=== PATIENT | male | born 1945 | race Caucasian/White ===

== ENCOUNTER 2016-09-15 08:40 | Emergency (ER) | payer MEDICARE ==
[2016-09-15 08:54] VITALS: BP 155/95
[2016-09-15] MEDS ORDERED: Phenylephrine 1% NASAL* 15 ML BOT ONE (09:00)
--- NOTE | 2016-09-15 09:20 | UC ---
Epistaxis Nasal HPI - HPI Summary HPI Summary: NOSE BLEED FROM THE RIGHT NOSTRIL SINCE THIS MORNING , HX OF FREQUENT NOSE BLEED, SAW ENT DR. ABDI LAST TIME ON [facility] - History of Current Complaint Chief Complaint: UCGeneralIllness Stated Complaint: NOSE BLEED Time Seen by Provider: 09/15/16 08:59 Hx Obtained From: Patient Onset/Duration: Sudden Onset, Lasting Hours - 2, Still Present Timing: Constant Severity Initially: Severe Aggravating Factor(s): Nasal Trauma Alleviating Factor(s): Pressure Associated Signs And Symptoms: Negative: Bruising, Hematuria, Hematochezia, Sinus Pain, Nasal Discharge, Recent Abnormal Coagulation Studies, Foreign Body - Allergies/Home Medications Allergies/Adverse Reactions: Allergies Allergy/AdvReac Type Severity Reaction Status Date / Time Sulfa Antibiotics Allergy Itching Verified 09/15/16 08:46 Home Medications: Home Medications Aspirin EC Low Dose* [Ecotrin EC Low Dose*] 81 mg PO DAILY 09/15/16 [History Confirmed 09/15/16] Atorvastatin* [Lipitor*] 30 mg PO BEDTIME 09/15/16 [History Confirmed 09/15/16] Carbidopa/Levodop 25/100 MG(*) [Sinemet 25/100 TAB(*)] 1.5 tab PO QID 09/15/16 [ History Confirmed 09/15/16] Finasteride TAB* [Proscar TAB*] 5 mg PO DAILY 09/15/16 [History Confirmed ] Liraglutide (NF) [Victoza (NF)] 0.8 mg SUBCUT DAILY 09/15/16 [History Confirmed 09/15/16] Omeprazole CAP* [Prilosec CAP* 20 MG] 20 mg PO DAILY 09/15/16 [History Confirmed 09/15/16] PMH/Surg Hx/FS Hx/Imm Hx Endocrine History Of: Reports: Diabetes Cardiovascular History Of: Reports: Cardiac Disorders - Quadruple Bypass, Dyslipidemia - Surgical History Surgical History: Yes Surgery Procedure, Year, and Place: Quadruple Bypass, Cholecystectomy, Left Inguinal Herniorrhaphy - Family History Known Family History: Negative: Diabetes - Social History Alcohol Use: None Substance Use Type: None Smoking Status (MU): Former Smoker When Did the Patient Quit Smoking/Using Tobacco: 2006 Review of Systems Constitutional: Negative Skin: Negative Eyes: Negative ENT: Other - NOSE BLEED Respiratory: Negative Cardiovascular: Negative Gastrointestinal: Negative All Other Systems Reviewed And Are Negative: Yes Physical Exam Triage Information Reviewed: Yes Appearance: Well-Appearing, No Pain Distress, Well-Nourished Vital Signs: Initial Vital Signs Temp 98.2 F 09/15/16 08:43 Pulse 54 09/15/16 08:43 Resp 16 09/15/16 08:43 BP 155/95 09/15/16 08:43 Pulse Ox 98 09/15/16 08:43 Eyes: Positive: Conjunctiva Clear ENT: Positive: Other: - + BLEEDING RIGHT NOSTRIL PACKING WAS PLACED INSIDE THE RIGHT NOSTRIL , BLEEDING WAS CONTROLLED Neck exam: Normal Neck: Positive: Supple, Nontender, No Lymphadenopathy Respiratory: Positive: Chest non-tender, Lungs clear, Normal breath sounds, No respiratory distress Cardiovascular: Positive: RRR, No Murmur, Pulses Normal Epistaxis Nasal Course/Dx - Course Course Of Treatment: WILL PLACE PACKING. FOLLOW UP WITH DR ABDI TODAY. PT. REQUESTED DR ABDI FOR FOLLOW UP - Differential Dx/Diagnosis Provider Diagnoses: EPISTAXIS Discharge - Discharge Plan Condition: Stable Disposition: HOME Patient Education Materials: Nosebleed (ED) Referrals: Howard Abdi MD [Medical Doctor] - As Soon As Possible
== END 2016-09-15 09:55 | disposition home or self-care (01) ==
LOC: UCCORT 08:40
DX: R04.0 Epistaxis (principal); Z79.82 Long term (current) use of aspirin; Z88.2 Allergy status to sulfonamides; Z87.891 Personal history of nicotine dependence
CPT/HCPCS: 30901; 99212; A9270-GY; G0463